=== PATIENT | male | born 1970 | race Caucasian/White ===

== ENCOUNTER 2016-06-09 14:17 | Emergency (ER) | payer OTHER ==
[2016-06-09] MEDS ORDERED: Ondansetron ODT 4 MG TAB ONE (14:31)
[2016-06-09] MEDS ORDERED: HYDROcodone/Acetaminophen 10/325 mg Tablet ONE (14:35)
[2016-06-09] MEDS ORDERED: Lidocaine 1% w/Epinephrine 1:100K 20 ML VIAL ONE (14:35)
[2016-06-09] MEDS ORDERED: Lidocaine Viscous Sol 2% 15 ml UD Cup ONE (14:35)
[2016-06-09] MEDS ORDERED: Lidocaine 1% 20 ML MDV ONE (15:01)
[2016-06-09] MEDS ORDERED: cefTRIAXone\\ROCEPHIN 1 GM VIAL ONE (15:01)
== END 2016-06-09 15:25 | disposition home or self-care (01) ==
LOC: NAV ERS 14:17
DX: K12.2 Cellulitis and abscess of mouth (principal); E78.5 Hyperlipidemia, unspecified; E78.00 Pure hypercholesterolemia, unspecified; E11.9 Type 2 diabetes mellitus without complications; F32.9 Major depressive disorder, single episode, unspecified; Z79.4 Long term (current) use of insulin; Z79.899 Other long term (current) drug therapy
CPT/HCPCS: 41800; 96372; J0696; J2001; Q0162

== ENCOUNTER 2016-07-26 07:26 | Emergency (ER) | payer OTHER | END 2016-07-26 08:04 | disposition home or self-care (01) | LOC: NAV ERS 07:26 | DX: S61.011A Laceration without foreign body of right thumb without damage to nail, initial encounter (principal); E78.00 Pure hypercholesterolemia, unspecified; E78.5 Hyperlipidemia, unspecified; I10 Essential (primary) hypertension; F32.9 Major depressive disorder, single episode, unspecified; Z79.899 Other long term (current) drug therapy; X58.XXXA Exposure to other specified factors, initial encounter ==

== ENCOUNTER 2016-08-09 19:28 | Emergency (ER) | payer OTHER ==
--- NOTE | 2016-08-09 20:30 | RAD ---
RADIOGRAPH LEFT SHOULDER 3 VIEWS: 08/09/16 HISTORY: 45-year-old male with acute traumatic left shoulder pain. FINDINGS: Moderate to severe degenerative changes at the glenohumeral joint and AC joint. No acute fracture. N o dislocation. Single metallic screw is embedded in a hypertrophic, excrescent portion of bone or flor ne fragment, at the anterior inferior aspect of the glenoid. IMPRESSION: 1. No acute findings. 2. Moderate to severe osteoarthrosis of the glenohumeral joint and acromioclavicular joint. 3. Postsurgical changes at the anterior inferior glenoid, including a lag screw. 4. No interval change overall since 12/05/13. POS: [facility]
== END 2016-08-09 20:25 | disposition home or self-care (01) ==
LOC: NAV ERS 19:28
DX: S43.402A Unspecified sprain of left shoulder joint, initial encounter (principal); M19.012 Primary osteoarthritis, left shoulder; E11.9 Type 2 diabetes mellitus without complications; E78.2 Mixed hyperlipidemia; F32.9 Major depressive disorder, single episode, unspecified; Z87.891 Personal history of nicotine dependence; Z79.899 Other long term (current) drug therapy; Z79.4 Long term (current) use of insulin; W19.XXXA Unspecified fall, initial encounter

== ENCOUNTER 2020-10-19 16:18 | Emergency (ER) | payer OTHER ==
[2020-10-19] MEDS ORDERED: Morphine 4 MG/ML VIAL ONE ×2 (16:49→17:11)
[2020-10-19 16:52] LABS: #Basophils 0.2 thou/uL (0.0-0.2); #Eosinphils 0.5 thou/uL (0.0-0.7); #Lymphocytes 3.6 thou/uL (1.20-3.40); #Monocytes 0.5 thou/uL (0.11-0.59); #Neutrophils 4.2 thou/uL (1.40-6.50); %Basophils 1.8 % (0.0-1.0); %Eosinophils 5.5 % (0.0-10.0); %Lymphocytes 40.5 % (21.0-51.0); %Monocytes 5.2 % (0.0-10.0); Hemoglobin 12.8 g/dL (14.0-18.0); Mean Corpuscular HGB CONC 28.7 g/dL (32.0-36.0); Mean Corpuscular Hemoglobin 20.8 pg (27.0-31.0); Mean Corpuscular Volume 72.3 fL (78.0-98.0); Mean Platelet Volume 7.4 fL (7.4-10.4); Platelet Count 432 thou/uL (130-400); RBC Distribution Width 16.3 % (11.5-14.5); Red Blood Cell (RBC) Count 6.17 mill/uL (4.70-6.10); White Blood Cell (WBC) Count 8.9 thou/uL (4.8-10.8)
[2020-10-19 17:05] LABS: ALT (SGPT) 32 U/L (8-55); AST (SGOT) 33 U/L (5-34); Albumin 4.1 g/dL (3.5-5.0); Alkaline Phosphatase 96 U/L (40-110); Anion Gap 20 mmol/L (10-20); BUN (Urea Nitrogen) 14 mg/dL (8.9-20.6); Bilirubin, Total 0.2 mg/dL (0.2-1.2); Calc. Creatinine Clearance 0 mL/min (70-130); Calcium 8.8 mg/dL (7.8-10.44); Carbon Dioxide 19 mmol/L (22-29); Chloride 98 mmol/L (98-107); Globulin 4.4 g/dL (2.4-3.5); Glucose 184 mg/dL (70-105); Potassium 3.6 mmol/L (3.5-5.1); Protein, Total 8.5 g/dL (6.0-8.3); Sodium 133 mmol/L (136-145)
[2020-10-19] MEDS ORDERED: Ketorolac Tromethamine 30 MG/ML VIAL ONE (17:18)
[2020-10-19 17:26] LABS: MDiff Complete? YES; Microcytosis SLIGHT = 6-15 cells (100X) (0-5/hpf); Platelet Morphology Comment Appears Adequate
[2020-10-19 17:48] LABS: CK (CPK) 118 U/L (30-200)
== END 2020-10-19 20:02 | disposition home or self-care (01) ==
LOC: NAV ERS 16:18
DX: M25.512 Pain in left shoulder (principal); E11.40 Type 2 diabetes mellitus with diabetic neuropathy, unspecified; I10 Essential (primary) hypertension; E78.2 Mixed hyperlipidemia; M10.9 Gout, unspecified; Z79.4 Long term (current) use of insulin; Z79.899 Other long term (current) drug therapy; Z87.891 Personal history of nicotine dependence; Z96.612 Presence of left artificial shoulder joint
CPT/HCPCS: 36415; 71045; 80053; 82550; 84484; 85025; 85379; 93005; 96374; 96375; 96376; J1885; J2270

== ENCOUNTER 2022-06-01 11:33 | Emergency (ER) | payer OTHER ==
[2022-06-01] MEDS ORDERED: Sodium Chloride 0.9% 1,000 ML ONE (11:48)
[2022-06-01] MEDS ORDERED: Ondansetron PF 4 MG/2 ML Vial ONE (11:48)
[2022-06-01] MEDS ORDERED: Boostrix 0.5 ML (Tdap) VIAL (>/=7 yrs of age) ONE (11:48)
[2022-06-01] MEDS ORDERED: Morphine 4 MG/ML VIAL ONE (11:48)
[2022-06-01 12:01] LABS: #Basophils 0.1 thou/uL (0.0-0.2); #Eosinphils 0.3 thou/uL (0.0-0.7); #Lymphocytes 2.6 thou/uL (1.20-3.40); #Monocytes 0.6 thou/uL (0.11-0.59); #Neutrophils 6.3 thou/uL (1.40-6.50); %Basophils 1.1 % (0.0-1.0); %Eosinophils 3.5 % (0.0-10.0); %Lymphocytes 26.1 % (21.0-51.0); %Monocytes 5.6 % (0.0-10.0); %Neutrophils 63.6 % (42.0-75.0); Hemoglobin 15.2 g/dL (14.0-18.0); Mean Corpuscular HGB CONC 30.4 g/dL (32.0-36.0); Mean Corpuscular Volume 78.9 fl (78.0-98.0); Mean Platelet Volume 6.7 fL (7.4-10.4); Platelet Count 432 10x3/uL (130-400); RBC Distribution Width 16.2 % (11.5-14.5); Red Blood Cell (RBC) Count 6.35 mill/uL (4.70-6.10); White Blood Cell (WBC) Count 9.9 10x3/uL (4.8-10.8)
[2022-06-01 12:06] LABS: INR-International Normal Ratio 0.9; PTT 31.3 sec (22.9-36.1); Prothrombin Time 12.8 sec (12.0-14.7)
[2022-06-01 12:12] LABS: ALT (SGPT) 36 U/L (8-55); AST (SGOT) 23 U/L (5-34); Albumin 4.1 g/dL (3.5-5.0); Alkaline Phosphatase 97 U/L (40-110); Anion Gap 16 mmol/L (10-20); BUN (Urea Nitrogen) 9 mg/dL (8.9-20.6); Bilirubin, Total 0.3 mg/dL (0.2-1.2); Calc. Creatinine Clearance 0 mL/min (70-130); Calcium 9.2 mg/dL (7.8-10.44); Carbon Dioxide 24 mmol/L (22-29); Chloride 99 mmol/L (98-107); Estimated GFR 83; Globulin 3.7 g/dL (2.4-3.5); Glucose 227 mg/dL (70-105); Potassium 3.4 mmol/L (3.5-5.1); Protein, Total 7.8 g/dL (6.0-8.3); Sodium 136 mmol/L (136-145)
[2022-06-01] MEDS ORDERED: Ketorolac Tromethamine 30 MG/ML VIAL ONE (12:18)
[2022-06-01] MEDS ORDERED: Cefepime 2 GM VIAL ONE (12:41)
[2022-06-01] MEDS ORDERED: Sodium Chloride 0.9% 100 ML ONE (12:41)
[2022-06-01] MEDS ORDERED: Bacitracin 1 PK ONE (12:42)
== END 2022-06-01 14:00 | disposition short-term general hospital (02) ==
LOC: NAV ERS 11:33
DX: T25.231A Burn of second degree of right toe(s) (nail), initial encounter (principal); T25.131A Burn of first degree of right toe(s) (nail), initial encounter; L03.115 Cellulitis of right lower limb; I10 Essential (primary) hypertension; E11.40 Type 2 diabetes mellitus with diabetic neuropathy, unspecified; E78.2 Mixed hyperlipidemia; M10.9 Gout, unspecified; X02.8XXA Other exposure to controlled fire in building or structure, initial encounter; Y92.009 Unspecified place in unspecified non-institutional (private) residence as the place of occurrence of the external cause; Z23 Encounter for immunization; Z87.891 Personal history of nicotine dependence; Z79.4 Long term (current) use of insulin; Z79.899 Other long term (current) drug therapy
CPT/HCPCS: 16020; 80053; 82550; 83605; 85025; 85379; 85610; 85730; 90471; 90715; 96365; 96375; J0692; J1885; J2270; J2405; J3490; J7050